=== PATIENT | female | born 1995 | race African-American/Black ===

== ENCOUNTER 2018-06-27 11:33 | Inpatient (IN) ==
[2018-06-27] MEDS ORDERED: AMPICILLIN 2,000 MG VIAL ONE ×2 (11:47→11:50)
[2018-06-27] MEDS ORDERED: SODIUM CHLORIDE 0.9% 100 ML IV ONE ×2 (11:48→11:52)
[2018-06-27] MEDS ORDERED: LACTATED RINGERS 500 ML IV PRN (11:48)
[2018-06-27] MEDS ORDERED: ONDANSETRON 4 MG/2 ML VIAL IV PRN ×3 (11:48→15:52)
[2018-06-27] MEDS ORDERED: AMPICILLIN INJ 2,000 MG in SODIUM CHLORIDE 0.9% 100 ML IV ONE (11:50)
[2018-06-27] MEDS ORDERED: miSOPROStol 200 MCG TABLET ONE (11:55)
[2018-06-27] MEDS ORDERED: LIDOCAINE 1% 50 ML VIAL ONE (11:55)
[2018-06-27] MEDS ORDERED: METHYLERGONOVINE 0.2 MG/1 ML AMP ONE (11:56)
[2018-06-27] MEDS ORDERED: CARBOPROST TROMETHAMINE 250 MCG/ML AMP IM ONE (11:56)
[2018-06-27] MEDS ORDERED: OXYTOCIN/LR 20 UNIT/1,000 ML BAG IV SCH (12:00)
[2018-06-27] MEDS ORDERED: LACTATED RINGERS 1,000 ML IV SCH (12:00)
[2018-06-27] MEDS ORDERED: BUTORPHANOL 2 MG/ML VIAL IV ONE (12:00)
[2018-06-27] MEDS ORDERED: BUTORPHANOL 1 MG/ML VIAL ONE (12:28)
[2018-06-27 12:29] LABS: Basophils % 0.2 % (0.0-0.8); Eosinophils # 1.1 10*3/uL (0.0-0.87); Eosinophils % 8.2 % (0.00-10.9); Hematocrit 32.2 VOL% (35.7-47.0); Hemoglobin 10.9 GM/DL (12.0-16.0); Immature Granulocytes % 0.8 %; Lymphocytes # 2.8 10*3/uL (1.4-4.0); Lymphocytes % 21.4 % (21.3-54.2); Mean Corpuscular HGB Conc 33.9 GM/DL (32-36); Mean Corpuscular Hemoglobin 33 PG (27-34); Mean Corpuscular Volume 98.2 FL (87-102); Mean Platelet Volume 11.5 FL (9.6-12.0); Monocytes % 7.4 % (1.7-12.7); Neutrophils # 8.2 10*3/uL (1.4-7.4); Platelet Count 232 T/CUMM (130-400); Red Blood Count 3.28 MC/CUMM (3.8-5.5); Red Cell Distribution Width 12.7 % (9.3-17.3); White Blood Count 13.2 T/CUMM (4-12)
[2018-06-27] MEDS ORDERED: BENZOCAINE 20%/MENTHOL 0.5% SPRAY 56 GM CAN TOP PRN ×2 (15:46→15:52)
[2018-06-27] MEDS ORDERED: WITCH HAZEL PADS 100/JAR TOP PRN ×2 (15:46→15:52)
[2018-06-27] MEDS ORDERED: BISACODYL 10 MG SUPP RECTAL PRN ×2 (15:46→15:52)
[2018-06-27] MEDS ORDERED: ACETAMINOPHEN 325 MG TABLET PO PRN ×2 (15:46→15:52)
[2018-06-27] MEDS ORDERED: LANOLIN 50% CREAM 0.3 OZ TUBE TOP PRN ×2 (15:46→15:52)
[2018-06-27] MEDS ORDERED: OXYTOCIN/LR 20 UNIT/1,000 ML BAG IV ONE ×2 (15:46→15:52)
[2018-06-27] MEDS ORDERED: MEASLES/MUMPS/RUBELLA VACCINE 0.5 ML VIAL SUBCUT ONE (15:46)
[2018-06-27] MEDS ORDERED: DIPH/TET/ACEL PERT BOOSTER VACCINE 0.5 ML VIAL IM ONE (15:46)
[2018-06-27] MEDS ORDERED: oxyCODONE/ACETAMINOPHEN 5-325 MG TABLET PO PRN ×3 (15:46→15:52)
[2018-06-27] MEDS ORDERED: HYDROCORTISONE 2.5% RECTAL CREAM 30 GM TUBE TOP PRN ×2 (15:46→15:52)
[2018-06-27] MEDS ORDERED: RHO(D) IMMUNE GLOBULIN 300 MCG SYRINGE IM ONE (15:52)
[2018-06-27] MEDS ORDERED: IBUPROFEN 800 MG TABLET PO PRN (15:52)
[2018-06-27] MEDS: IBUPROFEN 800 MG TABLET PO PRN (17:28)
[2018-06-27] MEDS: DOCUSATE SODIUM 100 MG CAPSULE PO SCH (20:36)
[2018-06-27] MEDS ORDERED: DOCUSATE SODIUM 100 MG CAPSULE PO SCH (21:00)
[2018-06-28] MEDS: IBUPROFEN 800 MG TABLET PO PRN ×2 (05:12→15:14)
[2018-06-28] MEDS: oxyCODONE/ACETAMINOPHEN 5-325 MG TABLET PO PRN ×2 (05:12→15:14)
[2018-06-28 06:32] LABS: Basophils % 0.2 % (0.0-0.8); Eosinophils # 0.9 10*3/uL (0.0-0.87); Eosinophils % 6.1 % (0.00-10.9); Hematocrit 25.4 VOL% (35.7-47.0); Immature Granulocytes % 0.8 %; Immature Granulocytes Absolute 0.11 #; Lymphocytes # 1.6 10*3/uL (1.4-4.0); Lymphocytes % 10.7 % (21.3-54.2); Mean Corpuscular HGB Conc 34.3 GM/DL (32-36); Mean Corpuscular Hemoglobin 33 PG (27-34); Mean Corpuscular Volume 97.3 FL (87-102); Mean Platelet Volume 11.4 FL (9.6-12.0); Monocytes # 0.6 10*3/uL (0.11-0.8); Monocytes % 3.8 % (1.7-12.7); Neutrophils # 11.5 10*3/uL (1.4-7.4); Neutrophils % 78.4 % (38.7-73.9); Platelet Count 186 T/CUMM (130-400); Red Cell Distribution Width 12.4 % (9.3-17.3); White Blood Count 14.6 T/CUMM (4-12)
[2018-06-28 07:05] LABS: Hemoglobin 8.7 GM/DL (12.0-16.0); Red Blood Count 2.61 MC/CUMM (3.8-5.5)
[2018-06-28] MEDS: FERROUS SULFATE 325 MG TABLET PO SCH ×2 (09:02→21:37)
[2018-06-28] MEDS: DOCUSATE SODIUM 100 MG CAPSULE PO SCH ×2 (09:02→21:37)
[2018-06-29 08:43] VITALS: BP 119/72
[2018-06-29] MEDS: DOCUSATE SODIUM 100 MG CAPSULE PO SCH (09:05)
[2018-06-29] MEDS: FERROUS SULFATE 325 MG TABLET PO SCH (09:05)
[2018-06-29] MEDS ORDERED: INFLUENZA VIRUS VACCINE 0.5 ML SYRINGE IM ONE (11:30)
== END 2018-06-29 12:35 | disposition home or self-care (01) | DRG 560 ==
LOC: N.LDOUT 11:33 → N.LD 11:35 → N.OB 15:39
PROVIDERS: ADMIT Obstetrics & Gynecology; ATTEND Obstetrics & Gynecology

== ENCOUNTER 2019-09-29 04:07 | Inpatient (IN) ==
[2019-09-29] MEDS ORDERED: MEPERIDINE 50 MG/1 ML VIAL IV PRN (04:29)
[2019-09-29] MEDS ORDERED: ONDANSETRON 4 MG/2 ML VIAL IV PRN ×2 (04:29→06:36)
[2019-09-29] MEDS ORDERED: BUTORPHANOL 2 MG/ML VIAL IV PRN (04:29)
[2019-09-29] MEDS ORDERED: MAGNESIUM SULF DRIP 40 GM/1,000 ML ML IV SCH (04:30)
[2019-09-29] MEDS ORDERED: BETAMETH SODIUM PHOS/ACETATE 30 MG/5 ML VIAL IM SCH (04:30)
[2019-09-29] MEDS ORDERED: LACTATED RINGERS 1,000 ML IV SCH (04:30)
[2019-09-29] MEDS ORDERED: AMPICILLIN 2,000 MG VIAL ONE (04:31)
[2019-09-29] MEDS ORDERED: TERBUTALINE 1 MG/1 ML VIAL SUBCUT PRN (04:37)
[2019-09-29] MEDS ORDERED: MAGNESIUM SULF RIDER 100 ML IV ONE (04:37)
[2019-09-29] MEDS ORDERED: TERBUTALINE 1 MG/1 ML VIAL ONE (04:39)
[2019-09-29] MEDS ORDERED: OXYTOCIN/LR 20 UNIT/1,000 ML BAG IV ONE ×2 (04:49→06:36)
[2019-09-29] MEDS ORDERED: miSOPROStoL 200 MCG TABLET ONE ×2 (04:49→05:25)
[2019-09-29] MEDS ORDERED: LIDOCAINE 1% 50 ML VIAL ONE (04:50)
[2019-09-29 04:56] LABS: Basophils % 0.2 % (0.0-0.8); Eosinophils # 0.9 10*3/uL (0.0-0.87); Eosinophils % 5.6 % (0.00-10.9); Hematocrit 29.5 VOL% (35.7-47.0); Hemoglobin 10.1 GM/DL (12.0-16.0); Immature Granulocytes % 0.7 %; Immature Granulocytes Absolute 0.12 #; Lymphocytes # 2.4 10*3/uL (1.4-4.0); Lymphocytes % 14.9 % (21.3-54.2); Mean Corpuscular HGB Conc 34.2 GM/DL (32-36); Mean Corpuscular Volume 96.7 FL (87-102); Mean Platelet Volume 10.6 FL (9.6-12.0); Monocytes % 6.7 % (1.7-12.7); Neutrophils % 71.9 % (38.7-73.9); Platelet Count 242 T/CUMM (130-400); Red Blood Count 3.05 MC/CUMM (3.8-5.5); Red Cell Distribution Width 12.4 % (9.3-17.3)
[2019-09-29] MEDS ORDERED: AMPICILLIN INJ 2,000 MG in SODIUM CHLORIDE 0.9% 100 ML IV ONE (05:04)
[2019-09-29] MEDS ORDERED: OXYTOCIN/LR 20 UNIT/1,000 ML BAG IV PRN (05:15)
[2019-09-29 05:16] LABS: Barbiturates Screen,Urine Negative (Negative); Benzodiazepines Screen,Urine Negative (Negative); Cannabinoid Screen,Urine Positive (Negative); Opiate Screen,Urine Negative (Negative); Phencyclidine Screen,Urine Negative (Negative)
[2019-09-29] MEDS ORDERED: CARBOPROST TROMETHAMINE 250 MCG/ML AMP IM ONE (05:25)
[2019-09-29] MEDS ORDERED: METHYLERGONOVINE 0.2 MG/1 ML AMP ONE (05:25)
[2019-09-29] MEDS ORDERED: OXYTOCIN/LR 0 UNIT/0 ML BAG IV ONE (05:25)
[2019-09-29] MEDS ORDERED: DIPH/TET/ACEL PERT BOOSTER VACCINE 0.5 ML VIAL IM ONE (06:36)
[2019-09-29] MEDS ORDERED: RHO(D) IMMUNE GLOBULIN 300 MCG SYRINGE IM ONE (06:36)
[2019-09-29] MEDS ORDERED: BISACODYL 10 MG SUPP RECTAL PRN (06:36)
[2019-09-29] MEDS ORDERED: MEASLES/MUMPS/RUBELLA VACCINE 0.5 ML VIAL SUBCUT ONE (06:36)
[2019-09-29] MEDS ORDERED: BENZOCAINE 20%/MENTHOL 0.5% SPRAY 56 GM CAN TOP PRN (06:36)
[2019-09-29] MEDS ORDERED: WITCH HAZEL PADS 100/JAR TOP PRN (06:36)
[2019-09-29] MEDS ORDERED: ACETAMINOPHEN 325 MG TABLET PO PRN (06:36)
[2019-09-29] MEDS ORDERED: HYDROCORTISONE 2.5% RECTAL CREAM 30 GM TUBE TOP PRN (06:36)
[2019-09-29] MEDS ORDERED: oxyCODONE/ACETAMINOPHEN 5-325 MG TABLET PO PRN ×2 (06:36)
[2019-09-29] MEDS ORDERED: LANOLIN 50% CREAM 0.3 OZ TUBE TOP PRN (06:36)
[2019-09-29 06:44] LABS: Cord Arterial Blood HCO3 21.4 MMOL/L
[2019-09-29 06:45] LABS: Cord Venous Blood HCO3 20.2 MMOL/L; Cord Venous Blood PCO2 34.5 MMHG; Cord Venous Blood PO2 39.9 MMHG
[2019-09-29] MEDS: IBUPROFEN 800 MG TABLET PO PRN (09:13)
[2019-09-29] MEDS: DOCUSATE SODIUM 100 MG CAPSULE PO SCH ×2 (09:13→20:50)
[2019-09-29 10:29] LABS: Hepatitis B Surface Ab Result Negative
[2019-09-29 10:57] LABS: HIV Antigen/Antibody Result Nonreactive (Nonreactive)
[2019-09-30] MEDS: IBUPROFEN 800 MG TABLET PO PRN (01:30)
[2019-09-30 06:37] LABS: Basophils % 0.1 % (0.0-0.8); Eosinophils % 0.1 % (0.00-10.9); Immature Granulocytes % 0.8 %; Lymphocytes # 1.7 10*3/uL (1.4-4.0); Lymphocytes % 7.4 % (21.3-54.2); Mean Corpuscular HGB Conc 34.8 GM/DL (32-36); Mean Corpuscular Volume 96.6 FL (87-102); Mean Platelet Volume 10.9 FL (9.6-12.0); Monocytes % 4.2 % (1.7-12.7); Neutrophils % 87.4 % (38.7-73.9); Platelet Count 237 T/CUMM (130-400); Red Blood Count 2.38 MC/CUMM (3.8-5.5); Red Cell Distribution Width 12.8 % (9.3-17.3); White Blood Count 23.5 T/CUMM (4-12)
[2019-09-30] MEDS: DOCUSATE SODIUM 100 MG CAPSULE PO SCH ×2 (09:48→20:01)
[2019-09-30] MEDS: FERROUS SULFATE 325 MG TABLET PO SCH ×2 (09:49→20:01)
[2019-09-30 11:42] LABS: Lymphocytes 4 % (20-55); Segmented Neutrophils 96 % (50-85); Total Cells Counted 100
[2019-09-30 11:43] LABS: Hypochromasia 1+; Platelet Estimate Normal; Polychromasia Slight; Spherocytes Few
[2019-10-01 08:10] VITALS: BP 118/63
[2019-10-01] MEDS: FERROUS SULFATE 325 MG TABLET PO SCH (10:46)
[2019-10-01] MEDS: DOCUSATE SODIUM 100 MG CAPSULE PO SCH (10:46)
== END 2019-10-01 13:15 | disposition home or self-care (01) | DRG 560 ==
LOC: N.LDOUT 04:07 → N.LD 04:09 → N.OB 16:44
PROVIDERS: ADMIT Specialist; ATTEND Specialist